=== PATIENT | male | born 1970 | race Caucasian/White ===

== ENCOUNTER 2018-06-09 10:03 | Emergency (ER) | payer SELFPAY ==
[2018-06-09 10:08] VITALS: BP 157/77; PULSE 71; TEMP 98.5; BMI 31.9
--- NOTE | 2018-06-09 10:58 | PDOC ---
History of Present Illness <Ruth Srinivasan - Last Filed: 06/09/18 13:45> - History of Present Illness Initial Comments: 06/09/18 11:43 The patient is a 47 year old male, with no significant past medical history, who presents to the emergency department with c/o dizziness and headache today. The patient states he woke up around 6am feeling well, used the bathroom, and returned to his room. He states that as he started bending forward to get clothes from his drawers he developed dizziness and blurred vision. He states the room was spinning initially but described the dizziness as more of a lightheaded sensation now. He states he developed a gradual frontal headache that radiates posteriorly and laterally. The patient states his headache has subsided since arriving to the ED, however, reports his lightheadedness is exacerbated with sitting up and walking. He denies any blurred vision at this time. He denies experiencing these symptoms in the past. The patient denies chest pain, shortness of breath. The patient denies fever, chills, nausea, vomit, diarrhea and constipation. The patient denies dysuria, frequency, urgency and hematuria. Allergies: NKDA Past surgical history: none reported Social history: social ETOH consumption (last drink 2 weeks ago) <Augusta Silva - Last Filed: 06/11/18 23:53> - General Chief Complaint: Syncope/Near Syncope Stated Complaint: Headache, dizziness, near syncope Time Seen by Provider: 06/09/18 10:27 Past History <Ruth Srinivasan - Last Filed: 06/09/18 13:45> - Past Medical History COPD: No DVT: No Diabetes: (possible) HTN: Yes (not on meds) - Suicide/Smoking/Psychosocial Hx Smoking History: Never smoked Information on smoking cessation initiated: No Hx Alcohol Use: Yes (occasional) Drug/Substance Use Hx: No Substance Use Type: None <Augusta Silva - Last Filed: 06/11/18 23:53> - Past Medical History Allergies/Adverse Reactions: Allergies Allergy/AdvReac Type Severity Reaction Status Date / Time No Known Allergies Allergy Verified 06/09/18 10:08 Home Medications: Ambulatory Orders NK [No Known Home Medication] 06/09/18 Review of Systems - Review of Systems Comments:: 06/09/18 11:44 "GENERAL/CONSTITUTIONAL: No fever or chills. No weakness. HEAD, EYES, EARS, NOSE AND THROAT: No change in vision. No ear pain or discharge. No sore throat. GASTROINTESTINAL: No nausea, vomiting, diarrhea or constipation. GENITOURINARY: No dysuria, frequency, or change in urination. CARDIOVASCULAR: No chest pain or shortness of breath. RESPIRATORY: No cough, wheezing, or hemoptysis. MUSCULOSKELETAL: No joint or muscle swelling or pain. No neck or back pain. SKIN: No rash NEUROLOGIC: (+) headache, dizziness/lightheadedness. No loss of consciousness, or change in strength/sensation. ENDOCRINE: No increased thirst. No abnormal weight change. HEMATOLOGIC/LYMPHATIC: No anemia, easy bleeding, or history of blood clots. ALLERGIC/IMMUNOLOGIC: No hives or skin allergy." <Augusta Silva - Last Filed: 06/11/18 23:53> *Physical Exam - Vital Signs Last Vital Signs Temp Pulse Resp BP Pulse Ox 98.5 F 71 18 157/77 98 06/09/18 10:05 06/09/18 10:05 06/09/18 10:05 06/09/18 10:05 06/09/18 10:05 <Ruth Srinivasan - Last Filed: 06/09/18 13:45> - Vital Signs Last Vital Signs Temp Pulse Resp BP Pulse Ox 98.5 F 71 18 157/77 98 06/09/18 10:05 06/09/18 10:05 06/09/18 10:05 06/09/18 10:05 06/09/18 10:05 - Physical Exam Comments: 06/09/18 11:45 GENERAL: Awake, alert, and fully oriented, in no acute distress HEAD: No signs of trauma EYES: PERRLA, EOMI, sclera anicteric, conjunctiva clear. 20/20 vision OU. VF full. ENT: Auricles normal inspection, hearing grossly normal, nares patent, oropharynx clear without exudates. Moist mucosa NECK: Normal ROM, supple, no lymphadenopathy, JVD, or masses LUNGS: Breath sounds equal, clear to auscultation bilaterally. No wheezes, and no crackles HEART: Regular rate and rhythm, normal S1 and S2, no murmurs, rubs or gallops ABDOMEN: Soft, nontender, normoactive bowel sounds. No guarding, no rebound. No masses EXTREMITIES: Normal range of motion, no edema. No clubbing or cyanosis. No cords, erythema, or tenderness NEUROLOGICAL: Normal speech, cranial nerves intact, negative pronator drift, 5/ 5 strength in all 4 extremities, normal sensation to light touch in all 4 extremities, normal cerebellar exam, normal gait, normal reflexes and tone SKIN: Warm, Dry, normal turgor, no rashes or lesions noted. <MairaravenAugusta - Last Filed: 06/11/18 23:53> Heart Score/ECG Review #1 06/09/18 11:51 Twelve-lead EKG was performed and reviewed by me. Sinus rhythm, rate 62. Normal axis.+ First-degree AV block. No ST elevations. T wave inversion in lead V3 and T-wave flattening in aVF. No previous EKGs to compare. <Augusta Silva - Last Filed: 06/11/18 23:53> ED Treatment Course - LABORATORY CBC & Chemistry Diagram: 06/09/18 11:45 06/09/18 11:45 - ADDITIONAL ORDERS Additional order review: Laboratory Results 06/09/18 11:45 Sodium 142 Potassium 4.2 Chloride 108 H Carbon Dioxide 27 Anion Gap 7 L BUN 14 Creatinine 0.6 L Creat Clearance w eGFR > 60 Random Glucose 113 H Calcium 8.8 Total Bilirubin 0.4 AST 15 ALT 25 Alkaline Phosphatase 56 Troponin I < 0.02 Total Protein 7.2 Albumin 3.9 06/09/18 11:45 RBC 5.33 MCV 83.0 MCHC 33.4 RDW 13.7 MPV 8.7 Neutrophils % 77.3 Lymphocytes % 17.3 Monocytes % 4.4 Eosinophils % 0.3 Basophils % 0.7 - RADIOLOGY Radiograph Interpretation: EXAM#: TYPE/EXAM: RESULT: [id number] RAD/CHEST X-RAY PORTABLE* HISTORY PROVIDED: Dizziness. A single frontal portable projection of the chest at 11:43 AM is submitted. The heart size is borderline enlarged. The lung traylor are free of acute infiltrates or pleural effusions. IMPRESSION: No acute pathology Reported By: Hugo Benson MD 06/09/18 1241 EXAM#: TYPE/EXAM: RESULT: CT/HEAD CT WITHOUT CONTRAST Status post fall. CT scan of the brain without intravenous contrast. The ventricles and basal cisterns appear unremarkable. No mass lesion, gross acute infarct or intracranial hemorrhage are identified. Right mastoid air cells are under aerated relative to the left without evidence of effusion. Minimal mucosal thickening in the ethmoid air cells. The calvarium is intact. Impression: No evidence of a focal intracranial lesion or hemorrhage seen. Correlate clinically to determine further evaluation and follow-up Reported By: Vicky Bradshaw MD 06/09/18 1248 - Medications Given in the ED: ED Medications Discontinued Medications Generic Name Dose Route Start Last Admin Trade Name Freq PRN Reason Stop Dose Admin Acetaminophen 1,000 mg 06/09/18 11:33 06/09/18 11:55 Ofirmev Injection - IVPB 06/09/18 11:34 1,000 mg ONCE ONE Administration Meclizine HCl 25 mg 06/09/18 11:33 06/09/18 11:54 Antivert - PO 06/09/18 11:34 25 mg ONCE ONE Administration Metoclopramide HCl 10 mg 06/09/18 11:33 06/09/18 11:55 Reglan Injection - IVPB 06/09/18 11:34 10 mg ONCE ONE Administration Sodium Chloride 1,000 ml 06/09/18 11:32 06/09/18 11:54 Normal Saline - IV 06/09/18 11:33 1,000 ml ONCE ONE Administration <Ruth Srinivasan - Last Filed: 06/09/18 13:45> - LABORATORY CBC & Chemistry Diagram: 06/09/18 11:45 06/09/18 11:45 <Augusta Silva - Last Filed: 06/11/18 23:53> Medical Decision Making - Medical Decision Making 06/09/18 11:41 47yo aust[place]ian speaking male denies PMH presents to the ED with headache, dizziness and blurry vision since this morning. Reports resolution of blurry vision and headache, but some persistent poorly described dizziness. Vitals with elevated BP to 150s systolic. Exam wnl. DDx includes peripheral vs central vertigo vs atypical migraine. Pt is completely non focal on exam. Given no hx similar sxs, will check labs, CTH, give meds for vertigo and reassess. 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 Trop2 neg. Pt ambulating in the ED with no symptoms , well appearing WIll follow up with his PMD at [address] [place] [address] within 1-2 days, return precautions given I discussed the physical exam findings, ancillary test results and final diagnoses with the patient. I answered all of the patient's questions. The patient was satisfied with the care received and felt comfortable with the discharge plan and treatment plan. The patient will call their primary care physician within 24 hours to arrange follow-up and will return to the Emergency Department with any new, persistent or worsening symptoms. <Augusta Silva - Last Filed: 06/11/18 23:53> *DC/Admit/Observation/Transfer - Attestations Scribe Attestion: 06/09/18 13:45 Documentation prepared by Ruth Srinivasan, acting as medical territory manager for Augusta Silva MD <Ruth Srinivasan - Last Filed: 06/09/18 13:45> - Discharge Dispostion Decision to Admit order: No - Attestations Physician Attestion: 06/09/18 17:16 I, Dr. Augusta Silva MD, attest that this document has been prepared under my direction and personally reviewed by me in its entirety. I further attest, that it accurately reflects all work, treatment, procedures and medical decision -making performed by me. <Augusta Silva - Last Filed: 06/11/18 23:53> Diagnosis at time of Disposition: Dizziness - Discharge Dispostion Disposition: HOME Condition at time of disposition: Stable - Patient Instructions Printed Discharge Instructions: DI for Dizziness-Nonvertigo Additional Instructions: As discussed, follow up with your primary doctor within 1-2 days. Return to the emergency department if you have any new, worsening, or concerning symptoms
[2018-06-09] MEDS ORDERED: SODIUM CHLORIDE 0.9% 500 ML INFUS.BAG IV ONE (11:32)
[2018-06-09] MEDS ORDERED: ACETAMINOPHEN 1000 MG/100 ML VIAL (NON FORMULARY) IVPB ONE (11:33)
[2018-06-09] MEDS ORDERED: MECLIZINE HCL 25 MG TABLET (FP) PO ONE (11:33)
[2018-06-09] MEDS ORDERED: METOCLOPRAMIDE HCL INJECTION 10 MG/2 ML VIAL IVPB ONE (11:33)
[2018-06-09] MEDS ORDERED: MECLIZINE HCL 25 MG TABLET (FP) ONE (11:51)
[2018-06-09] MEDS ORDERED: METOCLOPRAMIDE HCL INJECTION 10 MG/2 ML VIAL ONE (11:51)
[2018-06-09] MEDS ORDERED: ACETAMINOPHEN INJECTION 100 ML IVPB ONE (11:52)
[2018-06-09 11:57] LABS: BASO % 0.7 % (0-2.0); EOS % 0.3 % (0-4.5); HEMATOCRIT 44.2 % (35.4-49); HEMOGLOBIN 14.8 GM/dL (11.7-16.9); LYMPH % 17.3 % (8-40); MCH 27.7 pg (25.7-33.7); MCHC 33.4 g/dl (32.0-35.9); MEAN PLT VOLUME 8.7 fl (7.5-11.1); MONO % 4.4 % (3.8-10.2); NEUT % 77.3 % (42.8-82.8); PLATELET COUNT 223 K/MM3 (134-434); RBC 5.33 M/mm3 (4.00-5.60); RDW 13.7 % (11.9-15.9)
[2018-06-09 12:19] LABS: ALBUMIN 3.9 g/dl (3.4-5.0); ANION GAP 7 MMOL/L (8-16); BILIRUBIN,TOTAL 0.4 mg/dL (0.2-1.0); BLOOD UREA NITROGEN 14 mg/dL (7-18); CALCIUM 8.8 mg/dL (8.5-10.1); CHLORIDE 108 mmol/L (98-107); CO2 27 mmol/L (21-32); CREATININE 0.6 mg/dL (0.7-1.3); GLUCOSE,RANDOM 113 mg/dL (74-106); POTASSIUM 4.2 mmol/L (3.5-5.1); SGOT/AST 15 U/L (15-37); SGPT/ALT 25 U/L (12-78); SODIUM 142 mmol/L (136-145); TOT PROT 7.2 g/dl (6.4-8.2)
[2018-06-09 12:22] LABS: ALK PHOS 56 U/L (45-117)
--- NOTE | 2018-06-09 13:47 | EKG ---
Test Reason : Blood Pressure : / mmHG Vent. Rate : 062 BPM Atrial Rate : 062 BPM P-R Int : 216 ms QRS Dur : 090 ms QT Int : 380 ms P-R-T Axes : 032 039 -08 degrees QTc Int : 385 ms SINUS RHYTHM WITH 1ST DEGREE A-V BLOCK OTHERWISE NORMAL ECG NO PREVIOUS ECGS AVAILABLE Confirmed by JUD ALCANTARA MD ([id number]) on 06/09/2018 1:47:15 PM Referred By: Confirmed By:JUD ALCANTARA MD
== END 2018-06-09 17:28 | disposition home or self-care (01) ==
LOC: JER 10:03
PROC: 3E0337Z Introduction of Electrolytic and Water Balance Substance into Peripheral Vein, Percutaneous Approach (ICD-10-PCS; principal; 2018-06-09)
PROC: 3E033NZ Introduction of Analgesics, Hypnotics, Sedatives into Peripheral Vein, Percutaneous Approach (ICD-10-PCS; 2018-06-09)
PROC: 3E033GC Introduction of Other Therapeutic Substance into Peripheral Vein, Percutaneous Approach (ICD-10-PCS; 2018-06-09)
DX: R42 Dizziness and giddiness (principal)
CPT/HCPCS: 36415; 70450-TC; 71045-TC-FY; 80053; 84484; 85025; 93005; 93010; 99282-25; J0131

== ENCOUNTER 2019-08-07 11:37 | Emergency (ER) | payer OTHER ==
[2019-08-07 11:44] VITALS: TEMP 97.7; BMI 30.4
--- NOTE | 2019-08-07 12:32 | PDOC ---
History of Present Illness - General Chief Complaint: Lightheaded Stated Complaint: LIGHTHEADED Time Seen by Provider: 08/07/19 12:06 - History of Present Illness Initial Comments: Mr. Goodman is a 48 y/o male with no significant PMH presenting today for dizziness that started at 4am this morning. Reports that he has had posterior headaches and dizziness intermittently (every couple of days) before, but felt that this is worse. He was seen here 1 year ago for similar symptoms and reports that this is similar. He has seen his PCP and was given meclizine QD. Reports that he had bilateral loss of vision for several minutes today as well. Reports associated bilateral ringing of the ears. Describes the headache and posterior in nature with neck pain. Reports that the dizziness makes him feel like he may fall, but has not actually fallen. Denies fever/chills. No nausea/vomiting. No chest pain/shortness of breath. Past History - Past Medical History Allergies/Adverse Reactions: Allergies Allergy/AdvReac Type Severity Reaction Status Date / Time No Known Allergies Allergy Verified 08/07/19 11:44 Home Medications: Ambulatory Orders NK [No Known Home Medication] 06/09/18 COPD: No DVT: No Diabetes: (possible) HTN: Yes (not on meds) - Psycho Social/Smoking Cessation Hx Smoking History: Never smoked Hx Alcohol Use: Yes (occasional) Drug/Substance Use Hx: No Substance Use Type: None Review of Systems - Review of Systems Comments:: GENERAL/CONSTITUTIONAL: No fever or chills. Reports weakness. HEAD, EYES, EARS, NOSE AND THROAT: Reports transient loss of vision. No change in hearing. No sore throat._ CARDIOVASCULAR: No chest pain or shortness of breath_ RESPIRATORY: Denies cough, hemoptysis_ GASTROINTESTINAL: No nausea, vomiting, diarrhea or constipation._ GENITOURINARY: No dysuria, frequency, or change in urination._ MUSCULOSKELETAL: No joint or muscle swelling or pain. Reports neck pain. SKIN: No rash_ NEUROLOGIC: Reports headache, dizziness, and lightheadedness. Denies loss of consciousness. ENDOCRINE: No increased thirst. No abnormal weight change_ HEMATOLOGIC/LYMPHATIC: No anemia, easy bleeding, or history of blood clots._ ALLERGIC/IMMUNOLOGIC: No hives or skin allergy._ *Physical Exam - Vital Signs Last Vital Signs Temp Pulse Resp BP Pulse Ox 97.7 F 69 18 171/88 H 99 08/07/19 11:40 08/07/19 11:40 08/07/19 11:40 08/07/19 11:40 08/07/19 11:40 - Physical Exam Comments: GENERAL: Awake, alert, and oriented to person/place/time, in no acute distress_ HEAD: No signs of trauma, normocephalic, atraumatic _ EYES: PERRLA, EOMI, sclera anicteric, conjunctiva clear_ ENT: Hearing grossly normal, nares patent, oropharynx clear without exudates. No uvular deviation. Moist mucosa. Bilateral TMs intact, no bulging, no erythema. NECK: Normal ROM, supple, no lymphadenopathy, JVD, or masses_ LUNGS: No distress, speaks in full sentences, clear to auscultation bilaterally _ HEART: Regular rate and rhythm, normal S1 and S2, no murmurs appreciated, peripheral pulses normal and equal bilaterally._ ABDOMEN: Soft, nontender, normoactive bowel sounds. No guarding, no rebound. No masses_ EXTREMITIES: Normal inspection, Normal range of motion, no edema. No clubbing or cyanosis_ NEUROLOGICAL: Mental status: A/Ox3 CN II-XII tested and intact. No nystagmus on lateral gaze or head impulse test. Dizziness non-reproducible. Sensation intact to sharp/dull differentiation in all extremities. Motor: Normal tone and bulk. No abnormal movements appreciated. No pronator drift. Strength tested and 5/5 in bilateral wrist flexion/extension, elbow flexion/extension, shoulder abduction, straight leg raise, knee flexion/ extension, ankle dorsiflexion/plantarflexion. Patient ambulates with a steady gait. Coordination: Finger to nose and heel to west testing intact bilaterally. SKIN: Warm, Dry, normal turgor, no rashes or lesions noted_ ED Treatment Course - LABORATORY CBC & Chemistry Diagram: 08/07/19 13:24 08/07/19 13:24 Medical Decision Making - Medical Decision Making 08/07/19 12:45 48M hx of intermittent headaches and dizziness for the past year, on meclizine QD, presenting with worse dizziness that started this morning at 4am. -cbc, cmp, coags -trop, ekg, cxr -ct head, CTA brain, CTA neck -tylenol, fluids, meclizine, reglan 08/07/19 1315 EKG shows sinus rhythm with 1st degree AV block, 70 bpm, no axis deviation, no ST elevation/depression. 08/07/19 14:04 Labs reviewed and wnl. 08/07/[address] head, but patient repeatedly sits up on the CT table 2/ 2 dizziness. Discussed via form layer the importance of CT scan, but patient is unable to tolerate. -ativan 1 mg -meclizine 25 mg -will retry CT head if pt is able to tolerate 08/07/19 21:25 CT head shows no acute intracranial hemorrhage or acute infarction, no mass effect. 08/07/19 22:20 CTA shows no arterial dissection or stenosis or occlusion within the neck. No evidence of significant stenosis, occlusion, dissection or vascular malformation within intracerebral vasculature. Plan to d/c home, c/w meclizine, f/u PCP. Discharge - Discharge Information Problems reviewed: Yes Clinical Impression/Diagnosis: Dizziness Condition: Stable Disposition: HOME - Admission No - Follow up/Referral Referrals: Kenan Blackwood MD [Non Staff, Medical] - - Patient Discharge Instructions Patient Printed Discharge Instructions: Vertigo Additional Instructions: Please continue taking your meclizine medication as prescribed. Please make a follow up appointment with your primary care physician. If you experience any new, worsening, or concerning symptoms, including severe nausea/vomiting, weakness, loss of sensation or numbness, loss of consciousness , loss of balance/falls, loss of vision, or any other concerns, please return to the emergency department. Contine tomando gasca medicamento meclizina segn lo prescrito. Joseline luis manuel gin de seguimiento con gasca mdico de atencin primaria. Si experimenta algn sntoma nuevo, que empeora o preocupa, nigel nuseas / vmitos intensos, debilidad, prdida de la sensibilidad o entumecimiento, prdida de conciencia, prdida del equilibrio / cadas, prdida de la visin o cualquier otra inquietud, regrese a la emergencia departamento. Print Language: FAROESE - Post Discharge Activity
--- NOTE | 2019-08-07 12:41 | PDOC ---
Documentation entered by Chaz Zaragoza SCRIBE, acting as scribe for Cecilia Leone MD. Cecilia Leone MD: This documentation has been prepared by the Mila maynard Nirvannie, SCRIBE, under my direction and personally reviewed by me in its entirety. I confirm that the documentation accurately reflects all work, treatment, procedures, and medical decision making performed by me. Attending Attestation - Resident Resident Name: Quinn Becker - ED Attending Attestation I have performed the following: I have examined & evaluated the patient, The case was reviewed & discussed with the resident, I agree w/resident's findings & plan - HPI HPI: 08/07/19 13:06 The patient is a year 48 old male, with a significant past medical history of chronic headache, BPPV, who presents to the emergency department with, persistent dizziness. As per patient, yesterday he experienced a 20-30 min episode of bilateral loss of vision. He denies any recent head/neck trauma. He denies any recent trips to the chiropractor. Allergies: NKDA
[2019-08-07] MEDS ORDERED: SODIUM CHLORIDE 0.9% 500 ML INFUS.BAG IV ONE (13:02)
[2019-08-07] MEDS ORDERED: METOCLOPRAMIDE HCL INJECTION 10 MG/2 ML VIAL IVPUSH ONE (13:02)
[2019-08-07] MEDS ORDERED: ACETAMINOPHEN 1000 MG/100 ML VIAL (NON FORMULARY) IVPB ONE (13:02)
[2019-08-07] MEDS ORDERED: MECLIZINE HCL 25 MG TABLET (FP) PO ONE ×2 (13:03→18:14)
[2019-08-07] MEDS ORDERED: ACETAMINOPHEN INJECTION 100 ML IVPB ONE (13:10)
[2019-08-07] MEDS ORDERED: MECLIZINE HCL 25 MG TABLET (FP) ONE ×2 (13:10→18:35)
[2019-08-07] MEDS ORDERED: METOCLOPRAMIDE HCL INJECTION 10 MG/2 ML VIAL ONE (13:10)
[2019-08-07 13:37] LABS: BASO % 0.6 % (0-2.0); EOS % 1.2 % (0-4.5); HEMATOCRIT 47.3 % (35.4-49); HEMOGLOBIN 15.9 GM/dL (11.7-16.9); LYMPH % 21.5 % (8-40); MCH 28.2 pg (25.7-33.7); MCHC 33.6 g/dl (32.0-35.9); MEAN CELL VOLUME 83.9 fl (80-96); MEAN PLT VOLUME 8.8 fl (7.5-11.1); NEUT % 68.7 % (42.8-82.8); PLATELET COUNT 210 K/MM3 (134-434); RBC 5.64 M/mm3 (4.00-5.60); RDW 13.5 % (11.9-15.9); WHITE BLOOD COUNT 5.8 K/mm3 (4.0-10.0)
[2019-08-07 13:51] LABS: INR 0.97 (0.83-1.09); PROTHROMBIN TIME (PATIENT) 11.5 SEC (9.7-13.0)
[2019-08-07 14:04] LABS: ALBUMIN 4.2 g/dl (3.4-5.0); BILIRUBIN,TOTAL 0.4 mg/dL (0.2-1); BLOOD UREA NITROGEN 10.7 mg/dL (7-18); CALCIUM 8.8 mg/dL (8.5-10.1); CREATININE 0.7 mg/dL (0.55-1.3); POTASSIUM 3.8 mmol/L (3.5-5.1); TOT PROT 7.2 g/dl (6.4-8.2)
[2019-08-07 14:44] LABS: URINE APPEARANCE CLEAR; URINE BILIRUBIN NEGATIVE (NEGATIVE); URINE COLOR YELLOW; URINE GLUCOSE (UA) NEGATIVE (NEGATIVE); URINE KETONE NEGATIVE (NEGATIVE); URINE LEUK ESTERASE NEGATIVE (NEGATIVE); URINE NITRITE NEGATIVE (NEGATIVE); URINE PROTEIN NEGATIVE (NEGATIVE); URINE UROBILINOGEN 0.2 mg/dL (0.2-1.0)
[2019-08-07] MEDS ORDERED: LORazepam 2 MG/ML SDV VIAL ONE (17:12)
[2019-08-07 23:05] VITALS: BP 105/52; PULSE 73
--- NOTE | 2019-08-08 10:12 | EKG ---
Test Reason : Blood Pressure : / mmHG Vent. Rate : 070 BPM Atrial Rate : 070 BPM P-R Int : 214 ms QRS Dur : 092 ms QT Int : 378 ms P-R-T Axes : 052 048 017 degrees QTc Int : 408 ms SINUS RHYTHM WITH 1ST DEGREE A-V BLOCK OTHERWISE NORMAL ECG WHEN COMPARED WITH ECG OF 09-JUN-2018 11:43, NO SIGNIFICANT CHANGE WAS FOUND Confirmed by KENNETH TRIPP MD ([id number]) on 08/08/2019 10:12:08 AM Referred By: Confirmed By:KENNETH TRIPP MD
== END 2019-08-07 22:50 | disposition home or self-care (01) ==
LOC: JER 11:37
PROC: 3E033GC Introduction of Other Therapeutic Substance into Peripheral Vein, Percutaneous Approach (ICD-10-PCS; principal; 2019-08-07)
PROC: 3E033NZ Introduction of Analgesics, Hypnotics, Sedatives into Peripheral Vein, Percutaneous Approach (ICD-10-PCS; 2019-08-07)
PROC: 3E033NZ Introduction of Analgesics, Hypnotics, Sedatives into Peripheral Vein, Percutaneous Approach (ICD-10-PCS; 2019-08-07)
DX: R42 Dizziness and giddiness (principal)
CPT/HCPCS: 36415; 70450-TC; 70496-TC; 70498-TC; 71045-TC-FY; 80053; 81003; 82550; 84484; 85025; 85610; 85730; 87086; 93005; 93010; 96374; 96375; 99283-25; J0131